=== PATIENT | male | born 1965 | race Caucasian/White ===

== ENCOUNTER 2017-05-17 17:22 | Emergency (ER) | payer SELFPAY ==
[2017-05-17 17:42] VITALS: BP 156/104
[2017-05-17] MEDS ORDERED: Acetaminophen 325 MG Tab PO ONE (18:12)
--- NOTE | 2017-05-17 18:53 | CR ---
Pelvis: AP view of the pelvis was obtained. Comparison: No previous study. Sacroiliac joints are within normal limits. Joint spaces within both hips are maintained. No fracture or other abnormality is seen. Impression: 1. No abnormality is identified on AP pelvis study. Diagnostic code #1
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
== END 2017-05-17 19:30 | disposition home or self-care (01) ==
LOC: JD.ED 17:22
DX: S39.012A Strain of muscle, fascia and tendon of lower back, initial encounter (principal); S30.0XXA Contusion of lower back and pelvis, initial encounter; W31.89XA Contact with other specified machinery, initial encounter; Y99.0 Civilian activity done for income or pay
CPT/HCPCS: 72170; 99284; A9270; 99282